=== PATIENT | female | born 1985 | race Asian ===

== ENCOUNTER 2017-09-19 12:15 | Emergency (ER) | payer OTHER ==
[2017-09-19] MEDS ORDERED: Ondansetron HCl/PF 4 MG/2 ML Vial ONE (13:08)
[2017-09-19 13:17] LABS: Bilirubin Negative (Negative); Blood, Urine Negative (Negative); Clarity Clear (Clear); Glucose, Urine (Dipstick) Negative (Negative); Leukocyte Trace (Negative); Nitrite Negative (Negative); Protein, Urine (Dipstick) 30 mg/dL (Neg-Trace); Specific Gravity, Urine 1.025 (1.005-1.030); Urobilinogen 0.2 mg/dL (0.2-1.0); pH, Urine 6.5 (5.0-9.0)
[2017-09-19 13:18] LABS: #Lymphocytes 1.4 thou/uL (1.20-3.40); #Monocytes 0.3 thou/uL (0.11-0.59); #Neutrophils 8.2 thou/uL (1.40-6.50); %Basophils 0.5 % (0.0-1.0); %Eosinophils 0.1 % (0.0-10.0); %Lymphocytes 14.1 % (21.0-51.0); %Monocytes 2.6 % (0.0-10.0); %Neutrophils 82.7 % (42.0-75.0); Hemoglobin 14.6 g/dL (12.0-16.0); Mean Corpuscular HGB CONC 35.3 g/dL (32.0-36.0); Mean Corpuscular Hemoglobin 29.9 pg (27.0-31.0); Mean Corpuscular Volume 84.5 fl (81.0-99.0); Mean Platelet Volume 6.1 fL (7.4-10.4); Platelet Count 298 thou/uL (130-400); RBC Distribution Width 11.8 % (11.5-14.5); Red Blood Cell (RBC) Count 4.89 mill/uL (4.20-5.40); White Blood Cell (WBC) Count 9.9 thou/uL (4.8-10.8)
[2017-09-19 13:31] LABS: ALT (SGPT) 22 U/L (8-55); AST (SGOT) 17 U/L (5-34); Albumin 4.1 g/dL (3.5-5.0); Alkaline Phosphatase 34 U/L (40-150); Anion Gap 16 mmol/L (10-20); BUN (Urea Nitrogen) 7 mg/dL (7.0-18.7); Bilirubin, Total 0.4 mg/dL (0.2-1.2); Calc. Creatinine Clearance 0 mL/min (70-130); Carbon Dioxide 20 mmol/L (22-29); Chloride 105 mmol/L (98-107); Estimated GFR-MDRD Greater than 90; Globulin 3.4 g/dL (2.4-3.5); Glucose 120 mg/dL (70-105); Lipase 25 U/L (8-78); Potassium 3.6 mmol/L (3.5-5.1); Protein, Total 7.5 g/dL (6.0-8.3); Sodium 137 mmol/L (136-145)
[2017-09-19 13:32] LABS: Bacteria/HPF 1+ HPF (None Seen); RBC/HPF 0-3 HPF (0-3); WBC/HPF 0-3 HPF (0-3)
--- NOTE | 2017-09-19 14:23 | ULT ---
PELVIC ULTRASOUND: Date: 09/19/17 HISTORY: Patient with pelvic pain, no bleeding. FINDINGS: The uterus measures 9.5 cm x 7.5 cm x 6.5 cm. There is a fluid collection seen within the endometrial canal which contains a pole. Definite yolk sac is not delineated on the provided images. Bushyhead -rump length measures 2.06 cm, consistent with gestational age by ultrasound of 8 weeks and 5 days. C ardiac Doppler does demonstrate heart tones with a heart rate of 165 beats/minute. The right ovary is not visualized. The left ovary is also not well seen on transabdominal imaging. The left ovary measures 3.4 cm x 2.6 cm x 2.2 cm. Doppler evaluation of this structure suggests arterial and venous flow. No free fluid is seen in the cul-de-sac. IMPRESSION: 1. Single intrauterine gestation with heart tones documented. The estimated gestational age by ultrasound is 8 weeks and 5 days. 2. Nonvisualization of the right ovary. There is also limited evaluation of the left ovary, but no o bvious adnexal lesion is appreciated on this exam. POS: [facility]
== END 2017-09-19 14:35 | disposition home or self-care (01) ==
LOC: SCSER 12:15
DX: O21.9 Vomiting of pregnancy, unspecified (principal); Z3A.08 8 weeks gestation of pregnancy
CPT/HCPCS: 76856; 80053; 81003; 81015; 83690; 84702; 85025; 86900; 86901; 87086; 93976; 96360; J2405

== ENCOUNTER 2017-11-30 13:34 | Outpatient (CLI) | payer OTHER | END 2017-11-30 13:35 | disposition home or self-care (01) | LOC: BICULT 13:34 | PROVIDERS: ATTEND Family Medicine | DX: Z34.82 Encounter for supervision of other normal pregnancy, second trimester (principal); Z3A.19 19 weeks gestation of pregnancy | CPT/HCPCS: 76805 ==

== ENCOUNTER 2018-03-14 15:07 | Inpatient (IN) | payer MEDICAID, OTHER, SELFPAY ==
[~2018-03-14 15:07] MED LIST: Bupivacaine HCl 0.25%/Epi 0.0005/PF 10 ML VIAL FS ONE
[2018-03-14 16:01] VITALS: BMI 32.8
[2018-03-14 16:28] LABS: Amnisure Test RUPTURE DETECTED (No Rupture)
[2018-03-14 16:29] LABS: Amnisure Internal Control QC ACCEPTABLE (ACCEPTABLE)
[2018-03-14] MEDS ORDERED: Betamet Acet/Betamet Na Ph 30 MG/5 ML VIAL ONE (16:34)
[2018-03-14] MEDS ORDERED: Promethazine HCl 25 MG/ML VIAL IM PRN (17:54)
[2018-03-14] MEDS ORDERED: Lidocaine 1% (PF) 30 ML VIAL SC PRN (17:54)
[2018-03-14] MEDS ORDERED: Acetaminophen/Codeine 30-300mg Tablet PO PRN (17:54)
[2018-03-14] MEDS ORDERED: NS / Oxytocin 40 units/1000ml 1,000 ML IV PRN (17:54)
[2018-03-14] MEDS ORDERED: Acetaminophen 500 MG TAB PO PRN (17:54)
[2018-03-14] MEDS ORDERED: Ibuprofen 800 MG TAB PO PRN (17:54)
[2018-03-14] MEDS ORDERED: Butorphanol Tartrate 1 MG/ML VIAL SLOW IVP PRN (17:54)
[2018-03-14] MEDS ORDERED: HYDROcodone/Acetaminophen 5/325 mg Tablet PO PRN (17:54)
[2018-03-14] MEDS ORDERED: Zolpidem Tartrate 5 MG TAB PO PRN (17:54)
[2018-03-14] MEDS ORDERED: Ondansetron PF 4 MG/2 ML Vial IVP PRN (17:54)
[2018-03-14] MEDS ORDERED: Misoprostol 200 MCG TAB PR PRN (17:54)
[2018-03-14] MEDS ORDERED: Azithromycin 500 MG in Sodium Chloride 0.9% 250 ML 250 ML IVPB SCH (18:00)
[2018-03-14 18:53] LABS: Hemoglobin 13.8 g/dL (12.0-16.0); Mean Corpuscular HGB CONC 34.2 g/dL (32.0-36.0); Mean Corpuscular Hemoglobin 30.6 pg (27.0-31.0); Mean Corpuscular Volume 89.5 fL (78.0-98.0); Mean Platelet Volume 6.3 fL (7.4-10.4); Platelet Count 287 thou/uL (130-400); RBC Distribution Width 12.3 % (11.5-14.5); White Blood Cell (WBC) Count 10.2 thou/uL (4.8-10.8)
[2018-03-14] MEDS: Ampicillin 1 GM in Sodium Chloride 0.9% 100 ML IVPB SCH (19:20)
[2018-03-14 19:31] LABS: Syphilis Antibody Nonreactive (Nonreactive); Syphilis Antibody Index 0.03 S/CO (<1.00 Non-Reactive)
[2018-03-14 19:32] LABS: HBSAg Index 0.18 S/CO (0-0.99); Hep B Surf Ag Non-Reactive S/CO (NonReactive)
[2018-03-14] MEDS: Betamet Acet/Betamet Na Ph 30 MG/5 ML VIAL IM SCH (19:57)
--- NOTE | 2018-03-14 21:19 | HP ---
DATE OF ADMISSION: 03/14/2018 ADMISSION DIAGNOSIS: A 33-week, 6 day intrauterine with premature spontaneous rupture of m embranes without onset of labor. HISTORY OF PRESENT ILLNESS: Radha is a 32-year-old [place] patient followed in my clinic since 8 weeks throughout her care who presented to labor and delivery with spontaneous rupture of membranes of clear fluid approximately 2:00 p.m. today. The patient states that she noticed clear fl uid without onset of contractions, pain or any bleeding. She has had uncomplicated care at my office with onset of 8 weeks including an 8-week ultrasound which confirms her LMP, EDC. Noted th at she has received 17-hydroxyprogesterone IM weekly, onset at 16 weeks for history of premature labo r and delivery. PAST MEDICAL HISTORY: G2, P0-1-0-1, LMP 07/20/2017, ultrasound 09/19/2017. Final EDC 04/26/2017. PAST MEDICAL HISTORY: Significant for previous premature spontaneous rupture of membranes and delive ry at approximately 35 weeks, delivered normal spontaneous vaginal delivery at [facility] without complications. PAST SURGICAL HISTORY: Include appendectomy. MEDICATIONS: Include vitamins and 17-hydroxyprogesterone IM weekly. ALLERGIES: She has no known drug allergies. SOCIAL HISTORY: She does not smoke or drink. She is . FAMILY HISTORY: Insignificant. REVIEW OF SYSTEMS: As per HPI. PHYSICAL EXAMINATION: VITAL SIGNS: She is afebrile. Blood pressure within normal limits. ABDOMEN: Soft, nontender. No contractions palpable or noted on the monitor. CARDIOVASCULAR: Regular rate and rhythm. LUNGS: Clear to auscultation. HEENT: Normal. EXTREMITIES: Without edema. GENITOURINARY: Sterile speculum exam noted. Vagina with copious clear fluid. Cervix appears approx imately 1 cm in thick. IMAGING DATA: Bedside ultrasound of the baby noted to be vertex presentation. LABORATORY DATA: Significant laboratory studies include blood type A positive, RPR nonreactive, rube lla immune, HIV negative, hepatitis B surface antigen negative, AmniSure positive. Noted GBS had not been done due to premature at this time. ASSESSMENT AND PLAN: A 33-week 6 day intrauterine with premature spontaneous rupture of me mbranes without onset of labor. Options were discussed with the patient including possible transfer to higher level of care, although discussion with our neonatology team when arrived at the hospital s tated that we do have beds available and the patient agrees and declines transfer and feels that she would like and prefers to be admitted to [facility]. The patient to be admitted. We will start on IV ampicillin and IV Zithromax. She has received 1 dose of betamethasone approxima tely 4:00 p.m. today and we will plan a second dose in 12 hours. Continue to observe the patient guy kiran. Expect imminent delivery.
[2018-03-15] MEDS: Ampicillin 1 GM in Sodium Chloride 0.9% 100 ML IVPB SCH ×2 (01:08→10:22)
[2018-03-15] MEDS: Betamet Acet/Betamet Na Ph 30 MG/5 ML VIAL IM SCH (03:38)
[2018-03-15] MEDS ORDERED: Fentanyl 4 mcg/Bup 0.1% Cadd 100 ML ONE (05:44)
[2018-03-15] MEDS ORDERED: Promethazine HCl 25 MG/ML VIAL IM PRN (06:16)
[2018-03-15] MEDS ORDERED: Ondansetron PF 4 MG/2 ML Vial IVP PRN ×2 (06:16→08:50)
[2018-03-15] MEDS ORDERED: Acetaminophen 325 MG TAB PO PRN (06:16)
[2018-03-15] MEDS ORDERED: Lactated Ringer's 500 ML IV PRN (06:16)
[2018-03-15] MEDS ORDERED: NS / Oxytocin 40 units/1000ml 1,000 ML ONE (06:16)
[2018-03-15] MEDS ORDERED: Naloxone HCl 0.4 mg/ml Vial IVP PRN ×2 (06:16)
[2018-03-15] MEDS ORDERED: diphenhydrAMINE 50 MG/ML VIAL IVP PRN (06:16)
[2018-03-15] MEDS ORDERED: ePHEDrine/0.9% NaCl/PF SYRINGE 50 mg/10 ml SLOW IVP PRN (06:16)
[2018-03-15] MEDS ORDERED: Eucerin (Mineral Oil/Petrolatum,White) 30 gm Jar TOP PRN (06:16)
[2018-03-15] MEDS ORDERED: Lidocaine 1% (PF) 30 ML VIAL ONE (06:16)
[2018-03-15] MEDS ORDERED: Communication Order-Pharmacy FS SCH (06:30)
[2018-03-15] MEDS ORDERED: Fentanyl 4 mcg/Bupivacaine 0.1% Cassette 100 ML EPIDURAL SCH (06:30)
--- NOTE | 2018-03-15 07:36 | OP ---
DATE OF PROCEDURE: 03/15/2018 PREOPERATIVE DIAGNOSES: A 34-week intrauterine with premature spontaneous rupture of membr anes. POSTOPERATIVE DIAGNOSES: A 34-week intrauterine with premature spontaneous rupture of memb ranes, status post delivery. PROCEDURE PERFORMED: Normal spontaneous vaginal delivery. SURGEON: Dr. Janice Springer. BINDER AND BOX BUILDER: No marketing support assistant. ANESTHESIA: Epidural. COMPLICATIONS: None. PROCEDURE IN DETAIL: The patient after epidural was placed, patient noted to be complete. We dilate d. She was placed in the dorsal lithotomy position. Perineum was prepped and draped. The patient c ontinued to push. heart tones category 1. Patient underwent normal spontaneous vaginal delive ry from vertex presentation of a viable male . breathed and cried spontaneously. Cord was clamped and cut and handed to the care of the neonatology team. Noted the cord around the neck x1. Cord blood was obtained. Placenta delivered spontaneously, appeared intact. There were n o lacerations. Minimal bleeding. Estimated blood loss is approximately 200. Quantitative blood los s is pending at this time. The baby doing well to be transported to the NICU. At this time, not req uiring oxygen or any additional interventions. The patient tolerated the procedure well to be in rec overy in good condition.
[2018-03-15] MEDS ORDERED: Acetaminophen/Codeine 30-300mg Tablet PO PRN (08:50)
[2018-03-15] MEDS ORDERED: HYDROcodone/Acetaminophen 5/325 mg Tablet PO PRN (08:50)
[2018-03-15] MEDS ORDERED: Preparation H Ointment 28 GM TUBE PR PRN (08:50)
[2018-03-15] MEDS ORDERED: Benzocaine/Menthol 20-0.5% 60 ML CAN TOP PRN (08:50)
[2018-03-15] MEDS ORDERED: diphenhydrAMINE 25 MG CAP PO PRN (08:50)
[2018-03-15] MEDS ORDERED: Bisacodyl 10 MG SUPP PR PRN (08:50)
[2018-03-15] MEDS ORDERED: Milk Of Magnesia 30 ML UDCUP PO PRN (08:50)
[2018-03-15] MEDS ORDERED: NS / Oxytocin 40 units/1000ml 1,000 ML IV SCH (08:50)
[2018-03-15] MEDS ORDERED: Lanolin Ointment 7 GM TUBE TOP PRN (08:50)
[2018-03-15] MEDS ORDERED: Ferrous Sulfate 325 MG TAB PO SCH (10:30)
[2018-03-15 10:32] LABS: Band 7 % (5-11); Hemoglobin 14.1 g/dL (12.0-16.0); Lymphocytes 9 % (21-51); MDiff Complete? YES; Mean Corpuscular HGB CONC 33.5 g/dL (32.0-36.0); Mean Corpuscular Hemoglobin 30.4 pg (27.0-31.0); Mean Corpuscular Volume 90.7 fL (78.0-98.0); Mean Platelet Volume 6.3 fL (7.4-10.4); Monocytes 2 % (0-10); Neutrophil 82 % (42-75); Platelet Count 298 thou/uL (130-400); RBC Distribution Width 12.4 % (11.5-14.5); RBC Morphology Normal; Red Blood Cell (RBC) Count 4.65 mill/uL (4.20-5.40); White Blood Cell (WBC) Count 23.8 thou/uL (4.8-10.8)
[2018-03-15] MEDS: Ibuprofen 800 MG TAB PO SCH ×2 (14:27→22:28)
[2018-03-15] MEDS: Docusate Calcium (SURFAK) 240 MG CAP PO SCH ×2 (14:28→22:29)
[2018-03-15] MEDS: Prenatal Vitamin 1 TAB PO SCH (14:28)
[2018-03-15] MEDS: Ferrous Sulfate 325 MG TAB PO SCH (18:30)
[2018-03-16] MEDS: Ibuprofen 800 MG TAB PO SCH ×3 (06:05→22:32)
[2018-03-16] MEDS: Ferrous Sulfate 325 MG TAB PO SCH ×2 (08:16→18:49)
[2018-03-16] MEDS: Prenatal Vitamin 1 TAB PO SCH (08:19)
[2018-03-16] MEDS: Docusate Calcium (SURFAK) 240 MG CAP PO SCH ×2 (08:19→21:35)
[2018-03-17] MEDS: Ibuprofen 800 MG TAB PO SCH (06:04)
[2018-03-17 08:53] VITALS: BP 127/58; TEMP 98
[2018-03-17] MEDS: Ferrous Sulfate 325 MG TAB PO SCH (10:35)
[2018-03-17] MEDS: Docusate Calcium (SURFAK) 240 MG CAP PO SCH (10:36)
[2018-03-17] MEDS: Prenatal Vitamin 1 TAB PO SCH (10:36)
== END 2018-03-17 11:15 | disposition home or self-care (01) | DRG 807 ==
LOC: L&D/OP 15:07 → L&D 18:18 → 3SW 03-15 09:55
PROVIDERS: ADMIT Family Medicine; ATTEND Family Medicine
PROC: 10E0XZZ Delivery of Products of Conception, External Approach (ICD-10-PCS; principal; 2018-03-15)
PROC: 0HQ9XZZ Repair Perineum Skin, External Approach (ICD-10-PCS; 2018-03-15)
DX: O42.013 Preterm premature rupture of membranes, onset of labor within 24 hours of rupture, third trimester (principal); Z37.0 Single live birth; Z3A.33 33 weeks gestation of pregnancy; O70.0 First degree perineal laceration during delivery; O69.81X0 Labor and delivery complicated by cord around neck, without compression, not applicable or unspecified
CPT/HCPCS: 36415; 76815; 84112; 85025; 85027; 86780; 86850; 86900; 86901; 87340; 99285; J0290; J0456; J0595; J0702; J2001; J7050